=== PATIENT | male | born 1950 | race Caucasian/White ===

== ENCOUNTER 2017-07-15 10:49 | Inpatient (IN) | payer OTHER ==
[~2017-07-15] VITALS: Ht 172.7 cm; Wt 54.4 kg
[~2017-07-15 10:49] MED LIST: ALTOPREV20 MG PO; FORTAMET1000 MG PO; VASOTEC2.5 MG PO
[2017-07-20] MEDS ORDERED: COLACE100 MG PO (09:40)
== END 2017-07-20 12:58 | disposition home or self-care (01) | DRG 571 ==
LOC: SURH 10:49
PROVIDERS: Orthopaedic Surgery Hand Surgery
PROC: 0RBN0ZZ Excision of Right Wrist Joint, Open Approach (ICD-10-PCS; 2017-07-16)
PROC: 0PBM0ZZ Excision of Right Carpal, Open Approach (ICD-10-PCS; 2017-07-16)
PROC: 0LB50ZZ Excision of Right Lower Arm and Wrist Tendon, Open Approach (ICD-10-PCS; 2017-07-16)
PROC: 0JBG0ZZ Excision of Right Lower Arm Subcutaneous Tissue and Fascia, Open Approach (ICD-10-PCS; principal; 2017-07-16 08:00)
DX: L02.413 Cutaneous abscess of right upper limb (principal); T81.4XXA Infection following a procedure, initial encounter; M00.831 Arthritis due to other bacteria, right wrist; M65.131 Other infective (teno)synovitis, right wrist; B95.61 Methicillin susceptible Staphylococcus aureus infection as the cause of diseases classified elsewhere

== ENCOUNTER 2017-09-27 06:57 | Day surgery (SDC) | payer OTHER ==
[~2017-09-27 06:57] MED LIST changes: +COLACE100 MG PO
== END 2017-09-27 15:45 | disposition home or self-care (01) ==
LOC: CIR.AMB 06:57
DX: M12.531 Traumatic arthropathy, right wrist (principal)